=== PATIENT | female | born 1985 | race Two or more races ===

== ENCOUNTER 2017-08-05 09:41 | Emergency (ER) | payer OTHER ==
[2017-08-05 10:59] LABS: ABSOLUTE EOSINOPHILS # (AUTO) 0.1 10^3/uL (0.0-0.6); ABSOLUTE LYMPHOCYTES (AUTO) 1.7 10^3/uL (0.5-4.7); ABSOLUTE MONOCYTES (AUTO) 0.3 10^3/uL (0.1-1.4); ABSOLUTE NEUT (AUTO) 2.5 10^3/uL (1.7-8.2); BASOPHILS % (AUTO) 0.3 % (0-2); EOSINOPHILS % (AUTO) 1.9 % (0-6); HEMATOCRIT 39.5 % (36.0-47.0); HEMOGLOBIN 13.7 g/dL (12.0-15.5); HGB HCT DIFFERENCE 1.6; LYMPHOCYTES % (AUTO) 37.1 % (13-45); MEAN CORPUSCULAR HEMOGLOBIN 27.2 pg (27.0-33.4); MEAN CORPUSCULAR HGB CONC 34.7 g/dL (32.0-36.0); MEAN CORPUSCULAR VOLUME 78 fl (80-97); MONOCYTES % (AUTO) 5.5 % (3-13); RED BLOOD COUNT 5.04 10^6/uL (3.72-5.28); RED CELL DISTRIBUTION WIDTH 14.5 % (11.5-14.0); SEGMENTED NEUTROPHILS % (AUTO) 55.2 % (42-78); WHITE BLOOD COUNT 4.6 10^3/uL (4.0-10.5)
--- NOTE | 2017-08-05 11:05 | RADIOLOGY REPORT (SQ) ---
EXAM DESCRIPTION: CHEST PA/LAT COMPLETED DATE/TIME: 08/05/2017 10:50 am REASON FOR STUDY: cp COMPARISON: None. EXAM PARAMETERS: NUMBER OF VIEWS: two views TECHNIQUE: Digital Frontal and Lateral radiographic views of the chest acquired. RADIATION DOSE: NA LIMITATIONS: none FINDINGS: LUNGS AND PLEURA: No opacities, masses or pneumothorax. No pleural effusion. MEDIASTINUM AND HILAR STRUCTURES: No masses or contour abnormalities. HEART AND VASCULAR STRUCTURES: Heart normal size. No evidence for failure. BONES: No acute findings. HARDWARE: None in the chest. OTHER: No other significant finding. IMPRESSION: NO SIGNIFICANT RADIOGRAPHIC FINDING IN THE CHEST. TECHNICAL DOCUMENTATION: JOB ID: [id number] [employer]- All Rights Reserved
[2017-08-05 11:31] LABS: ALANINE AMINOTRANSFERASE 33 U/L (9-52); ALBUMIN 4.7 g/dL (3.5-5.0); ALKALINE PHOSPHATASE 100 U/L (38-126); ANION GAP 13 (5-19); ASPARTATE AMINO TRANSFERASE 19 U/L (14-36); BILIRUBIN,DIRECT 0.3 mg/dL (0.0-0.4); BILIRUBIN,TOTAL 0.7 mg/dL (0.2-1.3); BLOOD UREA NITROGEN 8 mg/dL (7-20); CALCIUM 9.7 mg/dL (8.4-10.2); CARBON DIOXIDE 26 mmol/L (22-30); CHLORIDE 105 mmol/L (98-107); CREATININE RESULT 0.62 mg/dL (0.52-1.25); GLUCOSE 83 mg/dL (75-110); POTASSIUM 3.8 mmol/L (3.6-5.0); SODIUM 144.1 mmol/L (137-145); TOTAL PROTEIN 7.9 g/dL (6.3-8.2)
--- NOTE | 2017-08-05 11:42 | ER Document Report ---
ED Cardiac - General Chief Complaint: Chest Pain Stated Complaint: CHEST PAIN, SHORTNESS OF BREATH Time Seen by Provider: 08/05/17 10:26 Mode of Arrival: Ambulatory Information source: Patient Notes: Patient presents with chest pain. It is right-sided. Patient states that the been constant since this morning. It is sharp in sensation. No significant radiation. Nothing makes it better or worse. No nausea or sweating. Patient denies any cough cold or congestion. She states she has been under stress. She denies any history of hormone usage or tobacco use. She denies any previous history of cardiac disease or family history. Patient has had no rashes. TRAVEL OUTSIDE OF THE [place] IN LAST 30 DAYS: No - Related Data Allergies/Adverse Reactions: No Known Allergies Allergy (Unverified 08/05/17 09:55) Past Medical History - General Information source: Patient - Social History Smoking Status: Never Smoker Chew tobacco use (# tins/day): No Frequency of alcohol use: None Drug Abuse: None Family History: Reviewed & Not Pertinent Patient has suicidal ideation: No Patient has homicidal ideation: No Renal/ Medical History: Denies: Hx Peritoneal Dialysis Psychiatric Medical History: Reports: Hx Depression - anxiety Past Surgical History: Reports: Hx Tubal Ligation Review of Systems - Review of Systems Constitutional: denies: Chills, Fever Cardiovascular: Chest pain. denies: Palpitations Respiratory: Short of breath. denies: Cough -: Yes All other systems reviewed and negative Physical Exam - Vital signs Vitals: Temp Pulse Resp BP Pulse Ox 97.9 F 72 14 129/87 H 100 08/05/17 09:55 08/05/17 09:55 08/05/17 09:55 08/05/17 09:55 08/05/17 09:55 Interpretation: Hypertensive - General General appearance: Appears well, Alert - HEENT Head: Normocephalic, Atraumatic Eyes: Normal Pupils: PERRL - Respiratory Respiratory status: No respiratory distress Chest status: Nontender Breath sounds: Normal Chest palpation: Normal - Cardiovascular Rhythm: Regular Heart sounds: Normal auscultation Murmur: No - Abdominal Inspection: Normal Distension: No distension Bowel sounds: Normal Tenderness: Nontender Organomegaly: No organomegaly - Back Back: Normal, Nontender - Extremities General upper extremity: Normal inspection, Nontender, Normal color, Normal ROM , Normal temperature General lower extremity: Normal inspection, Nontender, Normal color, Normal ROM , Normal temperature, Normal weight bearing. No: Holden's sign - Neurological Neuro grossly intact: Yes Cognition: Normal Orientation: AAOx4 Carolyn Coma Scale Eye Opening: Spontaneous [place] Coma Scale Verbal: Oriented [place] Coma Scale Motor: Obeys Commands Carolyn Coma Scale Total: 15 Speech: Normal Motor strength normal: LUE, RUE, LLE, RLE Sensory: Normal - Psychological Associated symptoms: Normal affect, Normal mood - Skin Skin Temperature: Warm Skin Moisture: Dry Skin Color: Normal Course - Vital Signs Vital signs: Temp Pulse Resp BP Pulse Ox 97.9 F 72 14 129/87 H 100 08/05/17 09:55 08/05/17 09:55 08/05/17 09:55 08/05/17 09:55 08/05/17 09:55 - Laboratory Result Diagrams: 08/05/17 10:35 08/05/17 10:35 Laboratory results interpreted by me: 08/05/17 10:35 MCV 78 L RDW 14.5 H - Diagnostic Test Radiology reviewed: Image reviewed, Reports reviewed - Patient's x-ray shows no evidence of infiltrate or edema - EKG Interpretation by Id EKG shows normal: Sinus rhythm Rate: Normal Rhythm: NSR [place]/QRS: No: Right axis deviation, Left axis deviation Discharge - Discharge Clinical Impression: Atypical chest pain Condition: Stable Disposition: HOME, SELF-CARE Instructions: Chest Pain of Unclear Cause ([facility]) Additional Instructions: Please call your primary care doctor as soon as possible to arrange follow-up. Please discuss a cardiac stress test. Your blood pressure is mildly elevated. Please have this rechecked within 1 week by your doctor. Forms: Elevated Blood Pressure, Return to Work Referrals: RAKAN [place] MD [COMMUNITY BASED STAFF] - Follow up in 1 week
[2017-08-05 11:54] VITALS: BP 116/89
--- NOTE | 2017-08-05 15:32 | EKG REPORT ---
SEVERITY:- BORDERLINE ECG - SINUS RHYTHM BORDERLINE T ABNORMALITIES, INFERIOR LEADS : Confirmed by: Palmira Maxwell 05-Aug-2017 15:31:31
== END 2017-08-05 11:52 | disposition home or self-care (01) ==
LOC: ER 09:41
DX: R07.89 Other chest pain (principal); R06.02 Shortness of breath
CPT/HCPCS: 36415; 71020; 80053; 84484; 85025; 93005; 93010; 99285

== ENCOUNTER 2017-08-12 09:56 | Emergency (ER) | payer OTHER ==
--- NOTE | 2017-08-12 10:04 | ER Document Report ---
ED Medical Screen (RME) - General Chief Complaint: Suicidal Ideation Stated Complaint: SUICIDAL Time Seen by Provider: 08/12/17 10:00 Notes: Patient states that she is feeling suicidal. She denies any type of ingestions. TRAVEL OUTSIDE OF THE U.S. IN LAST 30 DAYS: No - Related Data Allergies/Adverse Reactions: No Known Allergies Allergy (Verified 08/12/17 09:57) Past Medical History Renal/ Medical History: Denies: Hx Peritoneal Dialysis Psychiatric Medical History: Reports: Hx Depression - anxiety Past Surgical History: Reports: Hx Tubal Ligation Physical Exam - Vital signs Vitals: Temp Pulse Resp BP Pulse Ox 98.3 F 65 14 106/80 99 08/12/17 09:58 08/12/17 09:58 08/12/17 09:58 08/12/17 09:58 08/12/17 09:58 Course - Vital Signs Vital signs: Temp Pulse Resp BP Pulse Ox 98.3 F 65 14 106/80 99 08/12/17 09:58 08/12/17 09:58 08/12/17 09:58 08/12/17 09:58 08/12/17 09:58
[2017-08-12 10:30] LABS: ABSOLUTE EOSINOPHILS # (AUTO) 0.1 10^3/uL (0.0-0.6); ABSOLUTE LYMPHOCYTES (AUTO) 1.5 10^3/uL (0.5-4.7); ABSOLUTE MONOCYTES (AUTO) 0.3 10^3/uL (0.1-1.4); ABSOLUTE NEUT (AUTO) 2.3 10^3/uL (1.7-8.2); BASOPHILS % (AUTO) 0.5 % (0-2); HEMATOCRIT 40.4 % (36.0-47.0); HGB HCT DIFFERENCE 1.6; MEAN CORPUSCULAR HEMOGLOBIN 27.3 pg (27.0-33.4); MEAN CORPUSCULAR HGB CONC 34.5 g/dL (32.0-36.0); MEAN CORPUSCULAR VOLUME 79 fl (80-97); MONOCYTES % (AUTO) 6.5 % (3-13); RED BLOOD COUNT 5.12 10^6/uL (3.72-5.28); RED CELL DISTRIBUTION WIDTH 14.6 % (11.5-14.0); WHITE BLOOD COUNT 4.2 10^3/uL (4.0-10.5)
[2017-08-12 10:40] LABS: APPEARANCE,URINE SLIGHTLY-CLOUDY; BILIRUBIN,URINE NEGATIVE (NEGATIVE); GLUCOSE, URINE NEGATIVE (NEGATIVE); KETONES,URINE NEGATIVE (NEGATIVE); LEUKOCYTE ESTERASE,URINE TRACE (NEGATIVE); NITRITE,URINE NEGATIVE (NEGATIVE); PROTEIN,URINE NEGATIVE (NEGATIVE); URINE SPECIFIC GRAVITY 1.027; UROBILINOGEN,URINE NEGATIVE mg/dL (<2.0)
[2017-08-12 10:53] LABS: ALANINE AMINOTRANSFERASE 27 U/L (9-52); ALBUMIN 4.6 g/dL (3.5-5.0); ALCOHOL < 10 mg/dL (NONE DETECTED); ALKALINE PHOSPHATASE 93 U/L (38-126); ANION GAP 13 (5-19); ASPARTATE AMINO TRANSFERASE 20 U/L (14-36); BILIRUBIN,DIRECT 0.3 mg/dL (0.0-0.4); BILIRUBIN,TOTAL 0.6 mg/dL (0.2-1.3); BLOOD UREA NITROGEN 12 mg/dL (7-20); CALCIUM 9.5 mg/dL (8.4-10.2); CARBON DIOXIDE 28 mmol/L (22-30); CHLORIDE 104 mmol/L (98-107); CREATININE RESULT 0.69 mg/dL (0.52-1.25); GLUCOSE 83 mg/dL (75-110); POTASSIUM 4.5 mmol/L (3.6-5.0); SODIUM 144.7 mmol/L (137-145); TOTAL PROTEIN 7.5 g/dL (6.3-8.2)
[2017-08-12 10:56] LABS: URINE BARBITURATES SCREEN NEGATIVE; URINE METHADONE SCREEN NEGATIVE; URINE OPIATES LOW NEGATIVE; URINE PHENCYCLIDINE SCREEN NEGATIVE
--- NOTE | 2017-08-12 12:00 | PSYCHOLOGICAL NOTE ---
Psych Note - Psych Note Psych Note: Patient is a 32-year-old female who was prompted to present to [facility] from the [place] clinic due to suicidal ideations. Patient this morning states she has a long history of depression, and self injury. Patient acknowledges that there are times that she has cut to "feel something different," and there are times she cuts to . Patient states when she cut Friday morning she wanted to . Patient reports she was recently started on Prozac. She states her mood swings have been better, but there is an increase in panic attacks and thoughts of committing suicide. Patient reports she first attempted suicide in 2006 when she was with her first child (cutting) as well as patient reports again the frequent panic attacks as well as mood swings and irritability which she states was informed were secondary to her depression. Discussed with patient suicide and her children. Patient reports regardless of her 3 children , she would want to by suicide. , Soren : States he is concerned for her safety. He states he does not feel he can keep her safe at home with precautionary measures implemented. states they agreed last night on calling the [place] in following through with their recommendations this morning, and reports the patient still cut this morning. does report her mood swings have improved, but states other symptoms have worsened. [place] [facility] outpatient therapist, Celina : called to give report. [facility] states the patient and her called this morning to report the patient experienced thoughts of suicide over the weekend, and disclosed to her her thoughts and that she cut on her wrist. Patient and reportedly called the Clinic this morning to request assistance and were instructed to present to the ER. [facility] states the patient is medically from the as of October 2016, and has been seen by mental health about 2x. Patient was started on Prozac 20 mg qd 07/17/17, but has a prior history of Celexa (2010), and Clonazepam (possibly currently) and Elavil (2014). Patient is reportedly service connected due to Chronic Adjustment Disorder. Also diagnosed with depression and anxiety, with recent panic attacks. Patient is alert and oriented. Mood is depressed with occasionally tearful affect. Patient endorses suicidal ideations with plan and intent to cut. Her wrists. Patient denies homicidal ideations, intent, plan, means. Patient denies A/VH; delusions not noted. Thought processes were organized. Conversational speech was within normal limits for rate, tone, and prosody. Intellectual abilities were estimated within average range. Attention and focus were poor. Insight, judgment, impulse control were poor. 311 (F 32.9) unspecified depressive disorder 300 (F 41.9) unspecified anxiety disorder Patient is recommended for involuntary commitment. Patient is considered a danger to herself because she states she wants to by suicide. Patient reports her children are not a motivating factor to live versus commit suicide. Patient has made allegedly prior attempts. Patient's cuts are noted as superficial. I consulted with Dr. Farris in regards to the care management of this patient.
[2017-08-12] MEDS ORDERED: CITALOPRAM HYDROBROMIDE 20 MG TABLET PO ONE (12:37)
[2017-08-12] MEDS ORDERED: CITALOPRAM HYDROBROMIDE 20 MG TABLET PO SCH (13:00)
--- NOTE | 2017-08-12 18:09 | ER Document Report ---
ED General - General Chief Complaint: Suicidal Ideation Stated Complaint: SUICIDAL Time Seen by Provider: 08/12/17 10:00 TRAVEL OUTSIDE OF THE [place] IN LAST 30 DAYS: No - HPI Patient complains to provider of: Suicidal ideation Notes: Patient coming in with a history of depression states she is having suicidal thoughts. Patient states all falls been ongoing for approximately 1 weeks patient states on Friday she did cut her wrist patient states last night she also cut her wrist again. Patient states that history of suicidal thoughts in the past denies any recent inpatient psychiatric services. Patient is currently is on Prozac which is recently started the last 2 weeks. Denies any fevers chills nausea vomiting diarrhea denies any homicidal ideation denies any other areas of cutting other than her left wrist. - Related Data Allergies/Adverse Reactions: No Known Allergies Allergy (Verified 08/12/17 09:57) Home Medications: Current Home Medications Clonazepam 0.5 mg PO PRN PRN 08/12/17 [History] Fluoxetine HCl [Prozac 20 mg Capsule] 20 mg PO DAILY 08/12/17 [History] Past Medical History - Social History Smoking Status: Never Smoker Frequency of alcohol use: None Drug Abuse: None Family History: Reviewed & Not Pertinent Patient has suicidal ideation: Yes Patient has homicidal ideation: No - Past Medical History Cardiac Medical History: Reports: Hx Hypercholesterolemia Renal/ Medical History: Denies: Hx Peritoneal Dialysis Psychiatric Medical History: Reports: Hx Depression - anxiety Past Surgical History: Reports: Hx Tubal Ligation Review of Systems - Review of Systems Constitutional: No symptoms reported EENT: No symptoms reported Cardiovascular: No symptoms reported Respiratory: No symptoms reported Gastrointestinal: No symptoms reported Genitourinary: No symptoms reported Female Genitourinary: No symptoms reported Musculoskeletal: No symptoms reported Skin: No symptoms reported Hematologic/Lymphatic: No symptoms reported Neurological/Psychological: Suicidal ideation -: Yes All other systems reviewed and negative Physical Exam - Vital signs Vitals: Temp Pulse Resp BP Pulse Ox 98.3 F 65 14 106/80 99 08/12/17 09:58 08/12/17 09:58 08/12/17 09:58 08/12/17 09:58 08/12/17 09:58 Interpretation: Normal - General General appearance: Appears well, Alert - HEENT Head: Normocephalic, Atraumatic Eyes: Normal Pupils: PERRL - Respiratory Respiratory status: No respiratory distress Chest status: Nontender Breath sounds: Normal Chest palpation: Normal - Cardiovascular Rhythm: Regular Heart sounds: Normal auscultation Murmur: No - Abdominal Inspection: Normal Distension: No distension Bowel sounds: Normal Tenderness: Nontender Organomegaly: No organomegaly - Back Back: Normal, Nontender - Extremities General upper extremity: Nontender, Normal color, Normal ROM, Normal temperature. No: Normal inspection - Patient with 2 superficial self inflict laceration approximately 1-2 cm each on the palmar side of the wrist no signs of infection no need for any other treatment General lower extremity: Normal inspection, Nontender, Normal color, Normal ROM , Normal temperature, Normal weight bearing. No: Holden's sign - Neurological Neuro grossly intact: Yes Cognition: Normal Orientation: AAOx4 Carolyn Coma Scale Eye Opening: Spontaneous [place] Coma Scale Verbal: Oriented [place]yn Coma Scale Motor: Obeys Commands [place] Coma Scale Total: 15 Speech: Normal Motor strength normal: LUE, RUE, LLE, RLE Sensory: Normal - Psychological Associated symptoms: Normal affect, Normal mood - Skin Skin Temperature: Warm Skin Moisture: Dry Skin Color: Normal Course - Re-evaluation Re-evalutation: 08/12/17 18:08 Patient with 2 superficial self-inflicted had wounds to left wrist. Lab work does not show any significant pathology. Patient was medically clear for psychiatric evaluation recommended IVC at this time. Will attempt to place patient in patient - Vital Signs Vital signs: Temp Pulse Resp BP Pulse Ox 98.3 F 65 14 106/80 99 08/12/17 09:58 08/12/17 09:58 08/12/17 09:58 08/12/17 09:58 08/12/17 09:58 - Laboratory Result Diagrams: 08/12/17 10:10 08/12/17 10:10 Laboratory results interpreted by me: 08/12/17 08/12/17 08/12/17 10:10 10:10 10:10 MCV 79 L RDW 14.6 H Urine Blood SMALL H Ur Leukocyte Esterase TRACE H Salicylates < 1.0 L Acetaminophen < 10 L Discharge - Discharge Clinical Impression: Suicidal ideation Condition: Good Disposition: PSYCH HOSP/UNIT
--- NOTE | 2017-08-12 21:11 | EKG REPORT ---
SEVERITY:- NORMAL ECG - SINUS RHYTHM : Confirmed by: Lakeisha Cedeño MD 12-Aug-2017 21:10:53
[2017-08-12] MEDS ORDERED: DIPHENHYDRAMINE HCL 50 MG CAPSULE PO ONE (21:36)
[2017-08-13 06:14] VITALS: BP 104/76
--- NOTE | 2017-08-13 10:08 | PSYCHOLOGICAL NOTE ---
Psych Note - Psych Note Psych Note: Patient is a 32-year-old female who was prompted to present to [facility] from the [place] clinic due to suicidal ideations. Patient this morning states she has a long history of depression, and self injury. Patient acknowledges that there are times that she has cut to "feel something different," and there are times she cuts to . Patient states when she cut Friday morning she wanted to . Patient reports she was recently started on Prozac. She states her mood swings have been better, but there is an increase in panic attacks and thoughts of committing suicide. Patient reports she first attempted suicide in 2006 when she was with her first child (cutting) as well as patient reports again the frequent panic attacks as well as mood swings and irritability which she states was informed were secondary to her depression. Discussed with patient suicide and her children. Patient reports regardless of her 3 children , she would want to by suicide. 311 (F 32.9) unspecified depressive disorder 300 (F 41.9) unspecified anxiety disorder Patient is recommended for involuntary commitment. Patient was accepted to the [place] in [employer]; transportation occurred this morning.
== END 2017-08-13 09:15 ==
LOC: ER 09:56
DX: R45.851 Suicidal ideations (principal); S61.519A Laceration without foreign body of unspecified wrist, initial encounter; F32.9 Major depressive disorder, single episode, unspecified; Y33.XXXA Other specified events, undetermined intent, initial encounter; Z79.899 Other long term (current) drug therapy
CPT/HCPCS: 36415; 80053; 80307; 81001; 81025; 85025; 93005; 93010; 99285

== ENCOUNTER → 2020-03-03 | Day surgery (SDC) | payer OTHER ==
[~2020-03-03] MED LIST: LIDOCAINE 1% INJ-PF (10 MG/ML) 30 ML SDV ONE
--- NOTE | 2020-03-03 10:28 | RADIOLOGY REPORT (SQ) ---
EXAM DESCRIPTION: MRI LUMBAR SPINE WITHOUT IMAGES COMPLETED DATE/TIME: 03/03/2020 10:05 am REASON FOR STUDY: (M54.16)RADICULOPATHY, LUMBAR REGION M54.16 RADICULOPATHY, LUMBAR REGION M24.152 OTHER ARTICULAR CARTILAGE DISORDERS, LEFT HIP COMPARISON: None. TECHNIQUE: Sagittal and Axial imaging includes T1, T2, STIR and gradient echo sequences. Coronal T2/ HASTE imaging. LIMITATIONS: None. FINDINGS: VISUALIZED UPPER ABDOMEN: Limited evaluation. No acute or suspicious findings suggested. SEGMENTATION: No transitional anatomy. The lowest well-developed disc space is labeled L5-S1. ALIGNMENT: Anatomic. VERTEBRAE: Intact. BONE MARROW: Normal. No marrow replacement or reactive changes. DISC SIGNAL: Normal. No significant abnormal signal or loss of height. POSTERIOR ELEMENTS: Generally intact. No pars defect evident. HARDWARE: None in the spine. CORD AND CONUS: Normal in size and signal intensity. Conus at the appropriate level. SOFT TISSUES: No aortic aneurysm seen. No bulky retroperitoneal adenopathy or mass. No paraspinal mas s or fluid. L1-L2: No significant spinal stenosis or exit foraminal stenosis. L2-L3: No significant spinal stenosis or exit foraminal stenosis. L3-L4: No significant spinal stenosis or exit foraminal stenosis. L4-L5: No significant spinal stenosis or exit foraminal stenosis. L5-S1: No significant spinal stenosis or exit foraminal stenosis. LOWER THORACIC: Incompletely imaged. No stenosis seen. SACRUM: Visualized upper sacrum intact. OTHER: No other significant findings. IMPRESSION: NORMAL MRI LUMBAR SPINE. TECHNICAL DOCUMENTATION: JOB ID: [id number] 2010 [employer]- All Rights Reserved Reading location - IP/workstation name: [email or web address]
--- NOTE | 2020-03-03 10:41 | RADIOLOGY REPORT (SQ) ---
EXAM DESCRIPTION: ARTHRO HIP INJ W/ANESTHESIA; FLUORO/NEEDLE PLACEMENT IMAGES COMPLETED DATE/TIME: 03/03/2020 10:16 am REASON FOR STUDY: (M24.152)OTHER ARTICULAR CARTILAGE DISORDERS, LEFT HIP M54.16 RADICULOPATHY, LUMB AR REGION M24.152 OTHER ARTICULAR CARTILAGE DISORDERS, LEFT HIP COMPARISON: None. FLUOROSCOPY TIME: 9 seconds. 1 images saved to PACS. LIMITATIONS: None. PROCEDURE: Procedure, risks, benefits and alternatives explained to patient who then gave written c onsent. The left hip was marked and a time-out was called for correct marking verification. Entry s ite marked using fluoroscopic guidance. Hip prepped and draped using sterile technique. Local anes thesia achieved using 1% lidocaine injection. Hypodermic needle introduced into the joint space und er direct fluoroscopic visualization. Non-ionic contrast instilled to confirm intra-articular positi on. Dilute gadolinium solution then injected. Needle removed and entry site covered with sterile b andage. No immediate complications noted. TECHNIQUE: Digital images acquired during fluoroscopy and stored on PACS. Patient immediately take n to the MR suite for additional imaging. INJECTION LOCATION: Left hip. CONTRAST TYPE AND AMOUNT: 1 mL Omnipaque and 10 mL Dotarem/Saline mixture. IMPRESSION: SUCCESSFUL NEEDLE PLACEMENT AND INJECTION FOR LEFT HIP MR ARTHROGRAM. COMMENT: Quality ID [id number]: Final reports for procedures using fluoroscopy that document radiation exp osure indices, or exposure time and number of fluorographic images (if radiation exposure indices are not available) TECHNICAL DOCUMENTATION: JOB ID: [id number] 2010 [employer]- All Rights Reserved Reading location - IP/workstation name: [email or web address]
--- NOTE | 2020-03-03 15:24 | RADIOLOGY REPORT (SQ) ---
EXAM DESCRIPTION: MRI LT LOWER JOINT WITH IMAGES COMPLETED DATE/TIME: 03/03/2020 11:21 am REASON FOR STUDY: (M54.16)RADICULOPATHY, LUMBAR REGION;(M24.152)OTHER ARTICULAR CARTILAGE DIS M54.16 RADICULOPATHY, LUMBAR REGION M24.152 OTHER ARTICULAR CARTILAGE DISORDERS, LEFT HIP COMPARISON: None. TECHNIQUE: Post arthrogram imaging LEFT HIP is performed using T1 and T1 and T2 fat saturated sequen casi of the pelvis and specific hip of interest. LIMITATIONS: None. FINDINGS: JOINT DISTENSION: Adequate. No loose body. BONE MARROW: No edema. No marrow replacement. FEMORAL HEAD, NECK, AND ACETABULUM: No occult fracture. No osteophytes or subchondral cysts. Normal s phericity of femoral head/neck junction. No acetabular dysplasia. No evidence of femoroacetabular imp ingement. PUBIC RAMI AND ISCHIUM: No occult fracture. SACRUM AND JUANJOSE: SI joints normal in signal. No occult fracture. EFFUSIONS: None. LABRUM AND CARTILAGE: No labral tear. Cartilage of normal thickness without delamination. MUSCLES AND SOFT TISSUES: Adductors and piriformis normal. Abductors and greater trochanteric bursa n ormal without edema or fluid. Iliopsoas bursa without fluid. Hamstring attachments without edema or t ear. PELVIC SOFT TISSUES: No masses or adenopathy. SCIATIC NERVE: Identified without masses. OTHER: No other significant finding. IMPRESSION: NORMAL MRI ARTHROGRAM OF THE LEFT HIP. TECHNICAL DOCUMENTATION: JOB ID: [id number] 2010 [employer]- All Rights Reserved Reading location - IP/workstation name: [email or web address]
== END ==
LOC: RAD 08:10
PROVIDERS: ATTEND Orthopaedic Surgery
DX: M54.16 Radiculopathy, lumbar region (principal); M24.152 Other articular cartilage disorders, left hip
CPT/HCPCS: 73722; 72148; 77002; 27095; A9576; J3490

== ENCOUNTER 2020-04-17 14:52 | Emergency (ER) | payer OTHER ==
[2020-04-17 14:57] VITALS: BP 111/71
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
== END 2020-04-17 18:41 | disposition home or self-care (01) ==
LOC: ER 14:52
DX: S16.1XXA Strain of muscle, fascia and tendon at neck level, initial encounter (principal); S06.0X0A Concussion without loss of consciousness, initial encounter; R51 Headache; R11.2 Nausea with vomiting, unspecified; R53.83 Other fatigue; R40.0 Somnolence; V87.7XXA Person injured in collision between other specified motor vehicles (traffic), initial encounter
CPT/HCPCS: 70450; 99284